=== PATIENT | female | born 1965 | race Asian ===

== ENCOUNTER 2018-05-18 23:10 | Emergency (ER) | payer OTHER, SELFPAY ==
[2018-05-18 23:21] VITALS: BP 194/85; PULSE 105; RESP 20; TEMP 36.9; O2SAT 100
--- NOTE | 2018-05-18 23:25 | DI.RAD.S_ITS ---
PROCEDURE: XR CHEST 1V INDICATIONS: chest pain TECHNIQUE: One view of the chest was acquired. COMPARISON: [facility], , CHEST 1VW (PORTABLE), 10/10/2013, 13:35. FINDINGS: Surgical changes and devices: None. Lungs and pleura: No pleural effusions or pneumothorax. Lungs are clear. Mediastinum: Mediastinal contours appear normal. Heart size is normal. Bones and chest wall: No suspicious bony lesions. Overlying soft tissues appear unremarkable. IMPRESSION: No acute cardiopulmonary disease process. Dictated by: Radha Perez MD, PhD on 05/19/2018 at 7:58 Approved by: Radha Perez MD, PhD on 05/19/2018 at 7:59
--- NOTE | 2018-05-18 23:32 | ED_ITS ---
HPI - Chest Pain General Chief Complaint: Chest Pain Stated Complaint: middle stomach pain x2 hours Time Seen by Provider: 05/18/18 23:31 Source: patient Mode of arrival: ambulatory Limitations: no limitations History of Present Illness HPI narrative: 52-year-old female insulin-dependent diabetic here for evaluation of epigastric/chest pain. She states that it started after she took her break while at work and something to eat. States that it was a fairly sudden onset. Has been constant. Does not improve with palpation or movement or breathing. Was never had anything like it before. No shortness of breath. She states she initially thought it was reflux. Related Data Allergies Allergy/AdvReac Type Severity Reaction Status Date / Time codeine Allergy Verified 05/19/18 00:58 Review of Systems Constitutional Denies fever(s) Cardiovascular Reports chest pain, Denies rapid heart rate, Denies edema, Denies palpitations and Denies dyspnea Respiratory Denies dyspnea Gastrointestinal Gastrointestinal: Reports abdominal pain (Epigastric), Denies diarrhea, Denies nausea and Denies vomiting Genitourinary Denies dysuria Musculoskeletal Denies myalgias and Denies arthralgias Integumentary/Breasts Denies rash Endocrine Denies palpitations Hematologic/Lymphatic Denies easy bleeding and Denies easy bruising PFSH Medical History Diabetes (Acute) Hypertension (Acute) Surgical History No pertinent past surgical history (Acute) Exam Initial Vital Signs Initial Vital Signs: Vital Signs Temperature 98.4 F 05/18/18 23:21 Pulse Rate 105 H 05/18/18 23:21 Respiratory Rate 20 05/18/18 23:21 Blood Pressure 194/85 H 05/18/18 23:21 Pulse Oximetry 100 05/18/18 23:21 Const General: cooperative, comfortable, well developed, well groomed and No acute distress Orientation: alert, awake and oriented x3 Resp Effort & Inspection: normal respiratory effort Auscultation: clear to auscultation bilaterally Cardio Rate: tachycardic Rhythm: regular rhythm Heart Sounds: no murmurs Pulses: radial pulses present GI Inspection: non-distended Palpation: soft, No firm and No tender Skin Lesions: no lesions Rashes: no rashes Neuro General: alert, awake and oriented x3 Cognition: normal cognition Speech: speech normal Motor: muscle tone normal throughout Sensory Exam: no sensory deficits noted Extrem General: normal to inspection and capillary refill normal Right upper extremity: normal to inspection Psych Appearance: grossly normal and well kempt Course Orders Ordered: ED Orders 05/18/18 23:25 XR chest 1V Stat 05/18/18 23:37 Complete Blood Count AUTO DIFF Stat Comprehensive Metabolic Panel Stat Lipase Stat Partial Thromboplastin Time Stat Prothrombin Time INR Stat Troponin & CK Cardiac Panel Stat 05/19/18 02:32 Troponin I Stat Discontinued Medications Hydrocodone Bitart/Acetaminophen ([place] 5/325) 1 tab PO NOW ONE Stop: 05/19/18 00:58 Last Admin: 05/19/18 01:35 Dose: 1 tab Al Hydrox/Mg Hydrox/Simethicone 20 ml/ Lidocaine HCl 15 ml 0 ml PO NOW ONE Stop: 05/18/18 23:50 Last Admin: 05/19/18 00:13 Dose: 35 ml Sodium Chloride (Normal Saline 0.9%) 1,000 mls @ 1,000 mls/hr IV BOLUS ONE Stop: 05/19/18 00:57 Last Admin: 05/19/18 00:24 Dose: 1,000 mls/hr Insulin Human Regular (Humulin R) 10 unit SUBCUT NOW ONE Stop: 05/18/18 23:59 Last Admin: 05/19/18 00:13 Dose: 10 unit Metoclopramide HCl (Reglan) 10 mg IV NOW ONE Stop: 05/19/18 01:59 Last Admin: 05/19/18 02:02 Dose: 10 mg Vital Signs - 8 hr 05/18/18 23:21 05/19/18 00:20 05/19/18 01:15 Temperature 98.4 F Pulse Rate 105 H 88 90 Respiratory Rate 20 20 18 Blood Pressure 194/85 H Blood Pressure [Left Arm] 164/80 H 158/91 H Pulse Oximetry 100 97 97 05/19/18 01:39 05/19/18 02:30 Temperature Pulse Rate 93 H 76 Respiratory Rate 18 16 Blood Pressure Blood Pressure [Left Arm] 137/71 135/65 Pulse Oximetry 98 99 MDM - Chest Pain Lab Data Attestation: I reviewed the patient's lab results. Result diagrams: 05/18/18 23:37 05/18/18 23:37 Lab Results 05/18/18 05/18/18 05/18/18 Range/Units 23:37 23:37 23:37 WBC 7.3 (4.5-11.0) X10^3/uL RBC 4.93 (4.0-5.2) X10^6/uL Hgb 14.3 (12.0-16.0) g/dL Hct 42.9 (36-46) % MCV 87.0 (80-100) fL MCH 28.9 (26-34) PG MCHC 33.2 (30-36) % RDW 12.2 (11.6-14.8) % Plt Count 362 (150-400) X10^3/uL Neut % (Auto) 55.7 (50-75) % Lymph % (Auto) 35.7 (25-40) % [place] % (Auto) 6.2 (3-14) % Eos % (Auto) 1.4 L (2-4) % Baso % (Auto) 1.0 (0-2) % Neut # (Auto) 4100 (7675-0307) /uL PT 10.5 (10.1-12.7) SECONDS INR 1.0 (0.9-1.3) APTT 26 L (26.4-36.2) SECONDS Sodium 134 L (137-145) mmol/L Potassium 4.3 (3.4-5.1) mmol/L Chloride 91 L (98-107) mmol/L Carbon Dioxide 30 (22-32) mmol/L BUN 19 H (7-17) mg/dL Creatinine 0.80 (0.52-1.04) mg/dL Estimated GFR > 60.0 (>60) mL/min BUN/Creatinine Ratio 23.8 H (6-22) Glucose 574 H* (70-100) mg/dL Calcium 9.7 (8.4-10.2) mg/dL Total Bilirubin 0.5 (0.2-1.3) mg/dL AST 22 (14-36) IU/L ALT 35 (9-52) IU/L Alkaline Phosphatase 97 (38-126) U/L Total Creatine Kinase 117 (30-135) U/L CK-MB (CK-2) 2.29 (<2.37) ng/mL CK-MB (CK-2) Rel Index 2.0 (1.5-5.0) % Troponin I < 0.012 (0.01-0.034) ng/mL Total Protein 7.9 (6.3-8.2) g/dL Albumin 4.5 (3.5-5.0) g/dL Globulin 3.4 (1.7-4.1) g/dL Albumin/Globulin Ratio 1.3 (1.0-2.8) Lipase 257 (23-300) U/L 05/19/18 Range/Units 02:32 WBC (4.5-11.0) X10^3/uL RBC (4.0-5.2) X10^6/uL Hgb (12.0-16.0) g/dL Hct (36-46) % MCV (80-100) fL MCH (26-34) PG MCHC (30-36) % RDW (11.6-14.8) % Plt Count (150-400) X10^3/uL Neut % (Auto) (50-75) % Lymph % (Auto) (25-40) % [place] % (Auto) (3-14) % Eos % (Auto) (2-4) % Baso % (Auto) (0-2) % Neut # (Auto) (0760-6864) /uL PT (10.1-12.7) SECONDS INR (0.9-1.3) APTT (26.4-36.2) SECONDS Sodium (137-145) mmol/L Potassium (3.4-5.1) mmol/L Chloride (98-107) mmol/L Carbon Dioxide (22-32) mmol/L BUN (7-17) mg/dL Creatinine (0.52-1.04) mg/dL Estimated GFR (>60) mL/min BUN/Creatinine Ratio (6-22) Glucose (70-100) mg/dL Calcium (8.4-10.2) mg/dL Total Bilirubin (0.2-1.3) mg/dL AST (14-36) IU/L ALT (9-52) IU/L Alkaline Phosphatase (38-126) U/L Total Creatine Kinase (30-135) U/L CK-MB (CK-2) (<2.37) ng/mL CK-MB (CK-2) Rel Index (1.5-5.0) % Troponin I < 0.012 (0.01-0.034) ng/mL Total Protein (6.3-8.2) g/dL Albumin (3.5-5.0) g/dL Globulin (1.7-4.1) g/dL Albumin/Globulin Ratio (1.0-2.8) Lipase (23-300) U/L Point of Care Testing Glucose POC 298 Imaging Data Chest x-ray: Attestation: I personally reviewed and interpreted this imaging study as follows: My impression: No pneumonia, normal size heart No pneumothorax ECG Data Attestation: I personally reviewed and interpreted this ECG as follows: Prior ECG tracings: not available for review Interpretation: Sinus rhythm Ventricular rate of 93 Normal axis Normal QRS Normal QTC No ST T wave changes MDM Narrative Medical decision making narrative: Patient states she feels somewhat better after the Reglan the ER. Her LFTs are unremarkable. She does not have right upper quadrant abdominal pain. Low suspicion for gallbladder pathology. Lipase is unremarkable that makes pancreatitis unlikely. She did have an elevated glucose but not in DKA. She was given insulin and fluids which did improve her glucose levels. Chest x-ray is unremarkable. EKG was unremarkable. Troponins were negative x2. Low suspicion for ACS. Unsure the exact etiology of her symptoms. I do suspect it is related to her elevated glucose and potentially a GI etiology given the fact that it started just after she ate dinner ended he is somewhat better with the Reglan. Hold on further workup for now. Patient was given return precautions. She was instructed to follow up with her primary care doctor to discuss further workup. She expressed understanding and agreement with plan. Discharge Plan Departure Patient Disposition: Home Clinical Impression: Atypical chest pain, Abdominal pain, epigastric, Hyperglycemia Instructions: DI for Atypical Chest Pain Activity Restrictions/Additional Instructions: I do recommend that you take her blood sugars at home and take your insulin as directed by your primary care doctor. I do recommend you contact her primary care doctor to discuss further workup of the symptoms that brought you into the emergency department this evening. Return to the emergency department for any new or worsening symptoms Stand Alone Forms: Work/School Restrictions
[2018-05-18 23:46] LABS: Add Manual Diff / Slide Review NO; Eosinophils Percent Auto 1.4 % (2-4); Hematocrit 42.9 % (36-46); Hemoglobin 14.3 g/dL (12.0-16.0); Lymphocytes Percent Auto 35.7 % (25-40); Mean Corpuscular HGB Conc 33.2 % (30-36); Mean Corpuscular Hemoglobin 28.9 PG (26-34); Monocytes Percent Auto 6.2 % (3-14); Neutrophils Absolute Auto 4100 /uL (3000-5900); Neutrophils Percent Auto 55.7 % (50-75); Platelet Count 362 X10^3/uL (150-400); Prothrombin Time 10.5 SECONDS (10.1-12.7); Red Blood Cell Count 4.93 X10^6/uL (4.0-5.2); Red Cell Distribution Width 12.2 % (11.6-14.8); White Blood Cell Count 7.3 X10^3/uL (4.5-11.0)
[2018-05-18 23:48] LABS: PTT Partial Thromboplastin Tim 26 SECONDS (26.4-36.2)
[2018-05-18 23:50] LABS: Alanine Aminotransferase 35 IU/L (9-52); Albumin 4.5 g/dL (3.5-5.0); Albumin Globulin Ratio 1.3 (1.0-2.8); Alkaline Phosphatase 97 U/L (38-126); Aspartate Aminotransferase 22 IU/L (14-36); BUN Creatinine Ratio 23.8 (6-22); Bilirubin Total 0.5 mg/dL (0.2-1.3); Blood Urea Nitrogen 19 mg/dL (7-17); Calcium 9.7 mg/dL (8.4-10.2); Carbon Dioxide 30 mmol/L (22-32); Chloride 91 mmol/L (98-107); Creatine Kinase 117 U/L (30-135); Estimated Glomerular Filt Rate > 60.0 mL/min (>60); Globulin 3.4 g/dL (1.7-4.1); HEMOLYSIS 21 (0-50); Lipase 257 U/L (23-300); Potassium 4.3 mmol/L (3.4-5.1); Sodium 134 mmol/L (137-145); Total Protein 7.9 g/dL (6.3-8.2)
[2018-05-18 23:58] LABS: Glucose 574 mg/dL (70-100)
[2018-05-19 00:02] LABS: Troponin I < 0.012 ng/mL (0.01-0.034)
[2018-05-19 00:06] LABS: Creatine Kinase MB 2.29 ng/mL (<2.37)
[2018-05-19] MEDS: INSULIN REGULAR 100 UNIT/ML 3 ML VIAL 10 UNIT SUBCUT (00:13)
[2018-05-19] MEDS: MAG HYDROX/ALUMINUM/SIMETH SUS 20 ML, LIDOCAINE VISCOUS 2% 15 ML PO (00:13)
[2018-05-19 00:20] VITALS: BP 164/80; PULSE 88; RESP 20; O2SAT 97
[2018-05-19] MEDS: SODIUM CHLORIDE 0.9% 1,000 ML 1000 ML IV (00:24)
[2018-05-19 01:15] VITALS: BP 158/91; PULSE 90; RESP 18; O2SAT 97
[2018-05-19] MEDS: HYDROCODONE/ACET 5/325 TABLET 1 TAB PO (01:35)
[2018-05-19 01:39] VITALS: BP 137/71; PULSE 93; RESP 18; O2SAT 98
[2018-05-19] MEDS: METOCLOPRAMIDE 10 MG/2 ML INJ IV (02:02)
[2018-05-19 02:30] VITALS: BP 135/65; PULSE 76; RESP 16; O2SAT 99
[2018-05-19 03:03] LABS: Troponin I < 0.012 ng/mL (0.01-0.034)
[2018-05-19 03:36] VITALS: BP 138/71; PULSE 80; RESP 18; O2SAT 99
--- NOTE | 2018-06-02 18:48 | PC.NURSE ---
She received 525 ml normal saline and 475 ml wasted on 05/19/2018.
--- NOTE | 2018-06-20 11:18 | PC.NURSE ---
Per Shania POWELL, NS was infused on 05/19/2018 with 525ml completed at 0120 on 05/19/2018
== END 2018-05-19 03:37 | disposition home or self-care (01) ==
PROVIDERS: Emergency Provider Emergency Medicine
DX: R07.89 Other chest pain (principal); R10.13 Epigastric pain; R73.9 Hyperglycemia, unspecified
CPT/HCPCS: 36415; 36591; 71045; 80053; 82550; 82553; 82962; 83690; 84484; 85025; 85610; 85730; 93005; 96361; 96374; 99283; 99285; J2765

== ENCOUNTER → 2019-04-18 11:16 | Outpatient (CLI) | payer OTHER, SELFPAY | DX: Z23 Encounter for immunization (principal) | CPT/HCPCS: 90471; 90686 ==

== ENCOUNTER → 2020-04-09 12:00 | Outpatient (CLI) | payer OTHER, SELFPAY | PROVIDERS: Referring Provider Internal Medicine; Visit Provider Internal Medicine | DX: Z23 Encounter for immunization (principal) | CPT/HCPCS: 90471; 90686 ==